=== PATIENT | female | born 1960 ===

== ENCOUNTER 2025-07-10 11:01 | Outpatient (RCR) | payer MEDICARE, SELFPAY ==
--- NOTE | 2025-07-10 14:42 | OPREHPOC ---
Outpatient Therapy Plan of Care This is a Multidisciplinary Plan of Care that may contain components documented by all disciplines (PT, OT, and ST.) PT Problem 1 PT Problem #1 Knowledge Deficit PT Goal 1 Goal / Goal Update The patient will be independent in a home exercise program. Target Visit 2 PT Problem 2 PT Problem #2 Impaired Vestibular System PT Goal 1 Goal / Goal Update The patient will demonstrate negative positional vertigo tests. The patient will report no vertigo for a one week period. Target Visit 4 PT Problem 3 PT Problem #3 Impaired Functional Mobility PT Goal 1 Goal / Goal Update The patient will demonstrate 40% or less self perceived disability per the Dizziness Handicap Inventory. The patient will report the ability to sleep without vertigo symptoms waking her for a one week period. Target Visit 4
--- NOTE | 2025-07-10 14:42 | PTOPEVAL1 ---
Assessment and note entered by Lorna Glaser, PT Evaluation Information Assessment Status Evaluation ICD-10 Condition Codes (PT) Dizziness and Giddiness R42 Other ICD-10 Condition Codes ( H81.10 PT) Onset 04/29/25 Subjective Information Michelle Hill reports she was admitted to the hospital overnight for observation on 04/29/25 after going to the ER for severe vertigo. She reports she had had vertigo since 2022 but it has become more frequent. She went to the ER initially on and the ER doctor performed the Ramírez maneuver on her and she was discharged. She then returned to the ER 48 hours later after waking at 3 am with severe vertigo, vomiting, and inability to walk. She was given Ativan and meclizine and admitted for observation. She had a CT while in the hospital which came back normal and one of the PT's checked her for positional vertigo which was negative. She was discharged and told to take her Xanax and meclizine to control vertigo symptoms. She followed up with ENT whom she saw last week. She was referred to PT and to get a hearing test. She was also referred to a balance and dizziness specialization center for an extensive balance exam. She called to schedule that exam and will not be able to get in until November 2025. 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 She also had COVID in 2019 and since then she has noticed a gradual onset of hearing loss in her left ear. She had tubes put in her ears in 2022 which really helped reduce her symptoms. She reports the ENT said she had one of four things which were positional vertigo, meniere's disease, vestibular nerve inflammation, or another disorder that she can not remember. Her ENT did not think she needed tubes again. She has tried reducing her salt intake in the past without a change in her symptoms. She notes she will wake with full spinning and nausea in the middle of the night and during the day her tinnitus worsens, her ear feels full, and she feels like she is on a wave. She has been using the Xanax and meclizine regularly but has tried to wean herself off so she does not become immune to it. She continues to have symptoms on average about every 3 days. She does not have any symptoms today but did have a bad episode on 07/09/25. She also had a bad episode on 06/18/25 after looking up at the stars a lot the night before. She feels her symptoms are brought on by stress and looking up too much. She also has difficulty with faster movements and frequent head turning/movements which makes driving in traffic difficult. She also notes difficulty using her bifocal glasses. Reported Pain Level Pain Score 0: Self Report Assessment PT Clinical Summary Michelle Hill presents with chronic vertigo and dizziness. She has a history of a cholesteatoma surgery for the L ear, tubes in her ears due to chronic ear infections, and hearing loss in the left ear. She has had ER visits and an overnight hospital stay for observation due to the vertigo in late March/early April 2025. She has had a CT scan that was normal. She also had the Ramírez maneuver applied when she went to the ER the first time and her symptoms worsened 2 days later. She presents today with no symptoms and vestibular and positional vertigo testing is negative. She displays no nystagmus and she is a low fall risk per the Tinetti and Alvarez balance tests. She was educated on vestibular disorders and instructed in habituation exercises. She will be re-evaluated next week. Plan of Care Interventions Patient/Caregiver Education,Other Other Interventions Vestibular rehab PT Services Indicated Yes Treatment Frequency and 1 time a week for 4 weeks Duration These treatments will address the objective and functional deficits as defined above. The patient will be advanced safely and appropriately in order for the patient to progress towards his/her prior level of function. Additional exercises will be introduced and as well as a comprehensive home exercise program upon discharge, if needed, ?to ensure carryover of functional gains achieved in the clinic. This treatment plan has been reviewed and agreement upon by the patient.
--- NOTE | 2025-07-24 13:14 | PCPTNOTE ---
Patient called & cancelled scheduled appointment this date due to inability to make it in. -Lorna Glaser, PT
--- NOTE | 2025-07-29 10:54 | OPREHPOC ---
Outpatient Therapy Plan of Care This is a Multidisciplinary Plan of Care that may contain components documented by all disciplines (PT, OT, and ST.) PT Problem 1 PT Problem #1 Knowledge Deficit PT Goal 1 Goal / Goal Update The patient will be independent in a home exercise program. Target Visit 2 Progress Met PT Problem 2 PT Problem #2 Impaired Vestibular System PT Goal 1 Goal / Goal Update The patient will demonstrate negative positional vertigo tests. The patient will report no vertigo for a one week period. Target Visit 4 Progress Met PT Problem 3 PT Problem #3 Impaired Functional Mobility PT Goal 1 Goal / Goal Update The patient will demonstrate 40% or less self perceived disability per the Dizziness Handicap Inventory. The patient will report the ability to sleep without vertigo symptoms waking her for a one week period. Target Visit 4 Progress Met
--- NOTE | 2025-07-29 10:54 | PTOPDC ---
Assessment and note entered by Lorna Glaser, PT Evaluation Information Assessment Status Discharge ICD-10 Condition Codes (PT) Dizziness and Giddiness R42 Other ICD-10 Condition Codes ( H81.10 PT) Onset 04/29/25 Subjective Information Michelle Hill reports she has not had any symptoms of dizziness or vertigo for over 2 weeks. She feels her symptoms are building though after being busy the last few days and prepping for her mom's surgery next week. She feels her symptoms increase when she gets more stressed. She did have her extensive balance exam moved up from November 2025 to mid August 2025. She notes her symptoms have been better overall but she does continue to have a feeling of fullness in her ear and tinnitus. She had a cholesteatoma in the past and feels it may be coming back. She plans to follow up with her ENT and try to get a MRI. Reported Pain Level Pain Score 0: Self Report Assessment PT Clinical Summary Michelle Hill has completed 4 skilled PT visits for chronic vertigo and dizziness. She reports overall her symptoms have improved and she has not had an episode of vertigo for over 2 weeks. She does continue to have a feeling of fullness in her left ear and tinnitus similar to when she had a cholesteatoma in the past. She has had one day that she demonstrated signs of positional vertigo and it was treated successfully with the Ramírez maneuver. Outside of the one day, it is felt her vestibular symptoms are possibly of a central origin and not positional. She has been educated on vestibular disorders and instructed in habituation exercises to continue independently and the home Ramírez maneuver for when positional vertigo occurs. She presents today with negative vestibular and positional vertigo testing. She displays no nystagmus and she is a low fall risk per the Tinetti and Alvarez balance tests. She plans to follow up with her ENT and PCP for further testing. She may benefit from a MRI. Plan of Care PT Services Indicated No
== END 2025-07-29 15:51 | disposition home or self-care (01) ==
LOC: CHSPT 11:01
PROVIDERS: Visit Provider Otolaryngology
DX: H81.10 Benign paroxysmal vertigo, unspecified ear (principal)
CPT/HCPCS: 97110; 97112; 97162; 97750